=== PATIENT | female | born 1985 | race Caucasian/White ===

== ENCOUNTER 2019-11-30 13:44 | Emergency (ER) | payer OTHER, SELFPAY ==
[~2019-11-30] VITALS: Ht 165.1 cm; Wt 54.9 kg
[2019-11-30 13:52] VITALS: Ht 165.1 cm; Wt 54.9 kg
[2019-11-30 14:46] VITALS: BP 121/79
== END 2019-11-30 14:46 | disposition home or self-care (01) ==
LOC: ED 13:44
DX: J02.9 Acute pharyngitis, unspecified (principal); Z20.828 Contact with and (suspected) exposure to other viral communicable diseases; J45.909 Unspecified asthma, uncomplicated; Z90.89 Acquired absence of other organs
CPT/HCPCS: U0003-CS